=== PATIENT | female | born 1970 | race Caucasian/White ===

== ENCOUNTER 2017-01-10 05:58 | Day surgery (SDC) | payer OTHER ==
[~2017-01-10] VITALS: Ht 154.9 cm; Wt 71.2 kg
[~2017-01-10 05:58] MED LIST: CYCLOBENZAPR5 MG PO; EC-NAPROSYN500 MG PO; FLEXERIL PO; LORTAB 10-325 M1 TAB PO; LORTAB 5-325 MG1 TAB PO; NEXIUM20 M1 PO; PERCOCET 5/325M1 TAB PO; PROBIOTI3 PO; PROTONIX40 M2 PO; WELLBUTRIN SR150 MG PO; XANAX0.25 MG PO; ZANTAC150 M1 PO; [UNRECOGNIZED DRUG - OTHER]
[2017-01-10 08:27] VITALS: BP 141/82
== END 2017-01-10 08:15 | disposition home or self-care (01) | DRG 552 ==
LOC: ORM 05:58
PROVIDERS: ATTEND Anesthesiology Pain Medicine
PROC: 3E0U33Z Introduction of Anti-inflammatory into Joints, Percutaneous Approach (ICD-10-PCS; principal; 2017-01-10)
PROC: 3E0U3BZ Introduction of Anesthetic Agent into Joints, Percutaneous Approach (ICD-10-PCS; 2017-01-10)
DX: M54.2 Cervicalgia (principal)

== ENCOUNTER 2017-01-24 05:56 | Day surgery (SDC) | payer OTHER ==
[~2017-01-24] VITALS: Ht 154.9 cm; Wt 68.9 kg
== END 2017-01-24 06:45 | disposition home or self-care (01) | DRG 552 ==
LOC: ORM 05:56
PROVIDERS: ATTEND Anesthesiology Pain Medicine
DX: M54.2 Cervicalgia (principal); Z53.8 Procedure and treatment not carried out for other reasons

== ENCOUNTER → 2017-03-21 | Day surgery (SDC) | payer OTHER ==
[~2017-03-21] VITALS: Ht 154.9 cm; Wt 70.3 kg
[~2017-03-21] MED LIST changes: +FIORICET PO
[2017-03-21 07:58] VITALS: BP 105/58
== END | disposition home or self-care (01) | DRG 552 ==
LOC: ORM 02-21 09:45
PROVIDERS: ATTEND Anesthesiology Pain Medicine
PROC: 3E0U33Z Introduction of Anti-inflammatory into Joints, Percutaneous Approach (ICD-10-PCS; principal; 2017-03-21)
PROC: 3E0U3BZ Introduction of Anesthetic Agent into Joints, Percutaneous Approach (ICD-10-PCS; 2017-03-21)
DX: M54.2 Cervicalgia (principal)

== ENCOUNTER 2017-03-23 20:31 | Emergency (ER) | payer OTHER ==
[~2017-03-23] VITALS: Ht 154.9 cm; Wt 70.0 kg
[~2017-03-23 20:31] MED LIST changes: -FIORICET PO
[2017-03-23 21:19] LABS: HEMOGLOBIN 13.4 g/dl (12.0-16.0); IMMATURE GRANULOCYTES 0.3 % (0.0-1.0); MEAN CELL VOLUME 94.3 fL CALC (80.0-100.0); MEAN CORPUSCULAR HGB 31.6 pG CALC (26.0-32.0); MEAN CORPUSCULAR HGB CONC 33.5 g/L CALC (32.0-36.0); NEUT# 10.38 thou/uL (2.00-7.15); RED BLOOD COUNT 4.24 mill/uL (4.20-5.60); RED CELL DISTRI WIDTH 13.2 % (11.5-15.5)
[2017-03-23 21:20] LABS: URINE BILIRUBIN - DIPSTICK NEGATIVE (NEGATIVE); URINE BLOOD DIPSTICK NEGATIVE (NEGATIVE); URINE CLARITY SLIGHT CLOUDY; URINE COLOR YELLOW; URINE GLUCOSE - DIPSTICK NEGATIVE (NEGATIVE); URINE KETONE NEGATIVE (NEGATIVE); URINE LEUK ESTERASE NEGATIVE (NEGATIVE); URINE NITRITE - DIPSTICK NEGATIVE (Negative); URINE PH 6.5 (4.5-8.0); URINE PROTEIN - DIPSTICK NEGATIVE (NEG-TRACE); URINE UROBILINOGEN - DIPSTICK 0.2 E.U./dL (0.2)
[2017-03-23 21:33] LABS: ALBUMIN 4.7 g/dL (3.2-5.0); ALKALINE PHOSPHATASE 48 u/l (38-126); ANION GAP 16 (6-22 (CALC)); BILIRUBIN, TOTAL 0.3 mg/dL (0.0-1.4); BUN 17 mg/dL (7-17); BUN/CREATININE RATIO 18 (12-20 (CALC)); CALCIUM 9.9 mg/dL (8.4-10.2); CARBON DIOXIDE 25 mmol/l (22-30); CHLORIDE 104 mmol/l (95-108); CREATININE 0.9 mg/dL (0.5-1.0); GFR > 60 ML/MIN (>=60 (CALC)); GFR FOR AFR.AMER. > 60 ML/MIN (>=60 (CALC)); GLUCOSE 115 mg/dL (65-105); SGOT/AST 18 u/l (14-36); SGPT/ALT 33 u/l (9-52); SODIUM 141 mmol/l (137-146); TOTAL PROTEIN 7.9 g/dL (6.3-8.2)
[2017-03-23 23:12] VITALS: BP 122/78
== END 2017-03-23 23:15 | disposition home or self-care (01) | DRG 103 ==
LOC: ED 20:31
PROVIDERS: Emergency Medicine
DX: R51 Headache (principal); G35 Multiple sclerosis; D72.829 Elevated white blood cell count, unspecified; R11.0 Nausea

== ENCOUNTER 2017-03-27 15:29 | Emergency (ER) | payer OTHER ==
[~2017-03-27] VITALS: Ht 154.9 cm; Wt 70.0 kg
[2017-03-27 16:25] LABS: URINE BILIRUBIN - DIPSTICK NEGATIVE (NEGATIVE); URINE BLOOD DIPSTICK NEGATIVE (NEGATIVE); URINE CLARITY CLEAR; URINE COLOR YELLOW; URINE GLUCOSE - DIPSTICK NEGATIVE (NEGATIVE); URINE KETONE NEGATIVE (NEGATIVE); URINE LEUK ESTERASE NEGATIVE (NEGATIVE); URINE NITRITE - DIPSTICK NEGATIVE (Negative); URINE PH 5.5 (4.5-8.0); URINE PROTEIN - DIPSTICK NEGATIVE (NEG-TRACE); URINE SPECIFIC GRAVITY >=1.030; URINE UROBILINOGEN - DIPSTICK 0.2 E.U./dL (0.2)
[2017-03-27] MEDS ORDERED: FIORICET PO (17:12)
[2017-03-27 17:18] VITALS: BP 107/67
== END 2017-03-27 17:25 | disposition home or self-care (01) | DRG 103 ==
LOC: ED 15:29
PROVIDERS: Emergency Medicine
DX: G43.909 Migraine, unspecified, not intractable, without status migrainosus (principal); G35 Multiple sclerosis; G89.29 Other chronic pain; M54.9 Dorsalgia, unspecified; M54.2 Cervicalgia

== ENCOUNTER 2017-09-06 08:17 | Emergency (ER) | payer OTHER ==
[~2017-09-06] VITALS: Ht 154.9 cm; Wt 70.0 kg
[~2017-09-06 08:17] MED LIST changes: +FIORICET PO
[2017-09-06 09:13] LABS: HEMATOCRIT 39.9 % (37.0-47.0); HEMOGLOBIN 13.2 g/dl (12.0-16.0); IMMATURE GRANULOCYTES 0.2 % (0.0-1.0); MEAN CELL VOLUME 94.3 fL CALC (80.0-100.0); MEAN CORPUSCULAR HGB 31.2 pG CALC (26.0-32.0); MEAN CORPUSCULAR HGB CONC 33.1 g/L CALC (32.0-36.0); NEUT# 3.81 thou/uL (2.00-7.15); RED BLOOD COUNT 4.23 mill/uL (4.20-5.60); RED CELL DISTRI WIDTH 13.7 % (11.5-15.5)
[2017-09-06 09:57] LABS: ALBUMIN 4.4 g/dL (3.2-5.0); ALKALINE PHOSPHATASE 43 u/l (38-126); ANION GAP 15 (6-22 (CALC)); BILIRUBIN, TOTAL 0.5 mg/dL (0.0-1.4); BUN 11 mg/dL (7-17); BUN/CREATININE RATIO 15 (12-20 (CALC)); CALCIUM 9.8 mg/dL (8.4-10.2); CARBON DIOXIDE 25 mmol/l (22-30); CHLORIDE 107 mmol/l (95-108); CREATININE 0.7 mg/dL (0.5-1.0); GFR > 60 ML/MIN (>=60 (CALC)); GFR FOR AFR.AMER. > 60 ML/MIN (>=60 (CALC)); GLUCOSE 93 mg/dL (65-105); POTASSIUM 4.3 mmol/l (3.5-5.1); SGOT/AST 20 u/l (14-36); SGPT/ALT 28 u/l (9-52); SODIUM 142 mmol/l (137-146); TOTAL PROTEIN 7.1 g/dL (6.3-8.2)
[2017-09-06 10:08] LABS: MYOGLOBIN 27 ng/mL (0 - 62)
[2017-09-06 10:49] LABS: URINE BILIRUBIN - DIPSTICK NEGATIVE (NEGATIVE); URINE BLOOD DIPSTICK NEGATIVE (NEGATIVE); URINE COLOR YELLOW; URINE GLUCOSE - DIPSTICK NEGATIVE (NEGATIVE); URINE KETONE NEGATIVE (NEGATIVE); URINE LEUK ESTERASE NEGATIVE (NEGATIVE); URINE NITRITE - DIPSTICK NEGATIVE (Negative); URINE PH 5.5 (4.5-8.0); URINE PROTEIN - DIPSTICK NEGATIVE (NEG-TRACE); URINE UROBILINOGEN - DIPSTICK 0.2 E.U./dL (0.2)
[2017-09-06 10:55] LABS: URINE CLARITY CLEAR
[2017-09-06 15:06] VITALS: BP 134/80
== END 2017-09-06 15:07 | disposition home or self-care (01) | DRG 103 ==
LOC: ED 08:17
PROVIDERS: Emergency Medicine
DX: R51 Headache (principal); G35 Multiple sclerosis; R20.0 Anesthesia of skin
CPT/HCPCS: A9579

== ENCOUNTER 2017-11-21 12:40 | Emergency (ER) | payer OTHER ==
[~2017-11-21] VITALS: Ht 154.9 cm; Wt 71.4 kg
[2017-11-21] MEDS ORDERED: XANAX1 MG PO (12:54)
[2017-11-21] MEDS ORDERED: PANTOPRAZOLE SO40 MG PO (12:55)
[2017-11-21 13:39] LABS: HEMATOCRIT 41.2 % (37.0-47.0); HEMOGLOBIN 13.7 g/dl (12.0-16.0); IMMATURE GRANULOCYTES 0.3 % (0.0-1.0); MEAN CELL VOLUME 95.8 fL CALC (80.0-100.0); MEAN CORPUSCULAR HGB 31.9 pG CALC (26.0-32.0); MEAN CORPUSCULAR HGB CONC 33.3 g/L CALC (32.0-36.0); NEUT# 6.16 thou/uL (2.00-7.15); RED BLOOD COUNT 4.3 mill/uL (4.20-5.60); RED CELL DISTRI WIDTH 13.5 % (11.5-15.5)
[2017-11-21 13:42] LABS: ALBUMIN 4.3 g/dL (3.2-5.0); ALKALINE PHOSPHATASE 55 u/l (38-126); ANION GAP 16 (6-22 (CALC)); BILIRUBIN, TOTAL 0.4 mg/dL (0.0-1.4); BUN 12 mg/dL (7-17); BUN/CREATININE RATIO 15 (12-20 (CALC)); CARBON DIOXIDE 21 mmol/l (22-30); CHLORIDE 107 mmol/l (95-108); CREATININE 0.8 mg/dL (0.5-1.0); GFR > 60 ML/MIN (>=60 (CALC)); GFR FOR AFR.AMER. > 60 ML/MIN (>=60 (CALC)); LIPASE 84 u/l (23-300); POTASSIUM 4.2 mmol/l (3.5-5.1); SGPT/ALT 25 u/l (9-52); SODIUM 140 mmol/l (137-146); TOTAL PROTEIN 7.5 g/dL (6.3-8.2)
[2017-11-21 13:53] LABS: SGOT/AST 36 u/l (14-36)
[2017-11-21] MEDS ORDERED: CARAFATE1 GM PO (14:17)
[2017-11-21 14:31] VITALS: BP 119/73
== END 2017-11-21 14:39 | disposition home or self-care (01) | DRG 392 ==
LOC: ED 12:40
PROVIDERS: Emergency Medicine
DX: R10.13 Epigastric pain (principal); G35 Multiple sclerosis; F17.210 Nicotine dependence, cigarettes, uncomplicated; R05 Cough

== ENCOUNTER 2018-05-05 13:55 | Emergency (ER) | payer OTHER ==
[~2018-05-05] VITALS: Ht 154.9 cm; Wt 74.0 kg
[~2018-05-05 13:55] MED LIST changes: +CARAFATE1 GM PO; +PANTOPRAZOLE SO40 MG PO; +XANAX1 MG PO
[2018-05-05 14:36] VITALS: BP 143/101
== END 2018-05-05 14:36 | disposition left against medical advice (07) ==
LOC: ED 13:55 → LWOBS 14:19
DX: Z91.19 Patient's noncompliance with other medical treatment and regimen (principal)

== ENCOUNTER 2018-06-19 06:37 | Emergency (ER) | payer OTHER ==
[~2018-06-19] VITALS: Ht 154.9 cm; Wt 70.0 kg
[2018-06-19 07:22] LABS: HEMOGLOBIN 12.9 g/dl (12.0-16.0); IMMATURE GRANULOCYTES 0.3 % (0.0-5.0); MEAN CELL VOLUME 94.2 fL CALC (80.0-100.0); MEAN CORPUSCULAR HGB 31.2 pG CALC (26.0-32.0); MEAN CORPUSCULAR HGB CONC 33.1 g/L CALC (32.0-36.0); NEUT# 4.96 thou/uL (2.00-7.15); RED BLOOD COUNT 4.14 mill/uL (4.20-5.60); RED CELL DISTRI WIDTH 13.3 % (11.5-15.5)
[2018-06-19 07:23] LABS: URINE BILIRUBIN - DIPSTICK NEGATIVE (NEGATIVE); URINE BLOOD DIPSTICK TRACE-INTACT (NEGATIVE); URINE CLARITY CLEAR; URINE COLOR YELLOW; URINE GLUCOSE - DIPSTICK NEGATIVE (NEGATIVE); URINE KETONE NEGATIVE (NEGATIVE); URINE LEUK ESTERASE NEGATIVE (NEGATIVE); URINE NITRITE - DIPSTICK NEGATIVE (Negative); URINE PH 6.5 (4.5-8.0); URINE PROTEIN - DIPSTICK NEGATIVE (NEG-TRACE); URINE SPECIFIC GRAVITY <=1.005; URINE UROBILINOGEN - DIPSTICK 0.2 E.U./dL (0.2)
[2018-06-19 07:32] LABS: ALBUMIN 4.3 g/dL (3.2-5.0); ALKALINE PHOSPHATASE 44 u/l (38-126); ANION GAP 14 (6-22 (CALC)); BILIRUBIN, TOTAL 0.4 mg/dL (0.0-1.4); BUN 10 mg/dL (7-17); BUN/CREATININE RATIO 16 (12-20 (CALC)); CARBON DIOXIDE 24 mmol/l (22-30); CHLORIDE 108 mmol/l (95-108); CREATININE 0.6 mg/dL (0.5-1.0); GFR > 60 ML/MIN (>=60 (CALC)); GFR FOR AFR.AMER. > 60 ML/MIN (>=60 (CALC)); LIPASE 113 u/l (23-300); POTASSIUM 4.5 mmol/l (3.5-5.1); SGOT/AST 15 u/l (14-36); SODIUM 142 mmol/l (137-146); TOTAL PROTEIN 7.3 g/dL (6.3-8.2)
[2018-06-19] MEDS ORDERED: CYMBALTA20 MG PO (07:35)
[2018-06-19 09:28] VITALS: BP 115/75
== END 2018-06-19 09:39 | disposition home or self-care (01) ==
LOC: ED 06:37
PROVIDERS: Emergency Medicine
DX: R07.89 Other chest pain (principal); K21.9 Gastro-esophageal reflux disease without esophagitis; K44.9 Diaphragmatic hernia without obstruction or gangrene; F17.210 Nicotine dependence, cigarettes, uncomplicated; R53.1 Weakness; R42 Dizziness and giddiness; R10.13 Epigastric pain

== ENCOUNTER 2020-11-02 07:58 | Emergency (ER) | payer OTHER ==
[~2020-11-02] VITALS: Ht 154.9 cm; Wt 72.0 kg
[~2020-11-02 07:58] MED LIST changes: +CYMBALTA20 MG PO
[2020-11-02] MEDS ORDERED: IBUPROFEN600 MG PO (10:02)
[2020-11-02 10:12] VITALS: BP 107/70
== END 2020-11-02 10:13 | disposition home or self-care (01) ==
LOC: ED 07:58
DX: M25.512 Pain in left shoulder (principal); G35 Multiple sclerosis; F17.200 Nicotine dependence, unspecified, uncomplicated

== ENCOUNTER 2022-06-22 08:20 | Day surgery (SDC) | payer OTHER ==
[~2022-06-22] VITALS: Ht 154.9 cm; Wt 77.1 kg
[~2022-06-22 08:20] MED LIST changes: +24HR ALLERGY R180 MG PO; +FISH OIL1000 MG PO; +FLONASE AL50 MCG/ACT NAB; +IBUPROFEN600 MG PO; +LIPITOR20 M1 PO; +MEDICAL MARIJUANA IN; +MONTELUKAST SOD10 MG PO; +SUCRALFATE1 GM PO; +WELLBUTRIN100 M2 PO
[2022-06-22] MEDS ORDERED: PERCOCET 5/321 COMBO PO (11:25)
[2022-06-22 12:54] VITALS: BP 130/83
== END 2022-06-22 12:17 | disposition home or self-care (01) ==
LOC: ENDO 08:20
PROVIDERS: ATTEND Surgery
DX: K21.9 Gastro-esophageal reflux disease without esophagitis (principal); K64.2 Third degree hemorrhoids; Z12.11 Encounter for screening for malignant neoplasm of colon; D12.8 Benign neoplasm of rectum; F17.200 Nicotine dependence, unspecified, uncomplicated; Z86.010 Personal history of colon polyps
CPT/HCPCS: C9290; J0131

== ENCOUNTER 2024-03-22 13:52 | Emergency (ER) | payer OTHER ==
[~2024-03-22] VITALS: Ht 154.9 cm; Wt 61.2 kg
[2024-03-22] VITALS (10 sets, daily range): BP systolic 96–145; BP diastolic 61–100
[~2024-03-22 13:52] MED LIST changes: +PERCOCET 5/321 COMBO PO
[2024-03-22] MEDS ORDERED: SODIUM CHLORIDE 0.9% 1,000 ML IV ONE (14:10)
[2024-03-22] MEDS ORDERED: METHYLPREDNISOLONE SODIUM SUCC IV ONE (14:15)
[2024-03-22 14:25] LABS: BASO% 0.3 % (0-3); EOS% 1.4 % (0-8); HEMATOCRIT 41.5 % (37.0-47.0); HEMOGLOBIN 13.7 g/dl (12.0-16.0); IMMATURE GRANULOCYTES 0.1 % (0.0-5.0); LYMPH% 37.6 % (15-41); MEAN CORPUSCULAR HGB 31.4 pG CALC (26.0-32.0); MONO% 4.3 % (2-13); NEUT# 4.85 thou/uL (2.00-7.15); NEUT% 56.3 % (42-76); RED BLOOD COUNT 4.37 mill/uL (4.20-5.60); RED CELL DISTRI WIDTH 13.2 % (11.5-15.5)
[2024-03-22 14:55] LABS: CREATININE 0.8 mg/dL (0.5-1.0)
[2024-03-22 14:59] LABS: POTASSIUM 3.4 mmol/l (3.5-5.1)
[2024-03-22] MEDS ORDERED: STERILE WATER IV ONE (15:15)
[2024-03-22] MEDS ORDERED: STERILE WATER 1 VIAL IV ONE (15:31)
== END 2024-03-22 16:11 | disposition home or self-care (01) ==
LOC: ED 13:52
PROVIDERS: Family Medicine
DX: G35 Multiple sclerosis (principal); F17.210 Nicotine dependence, cigarettes, uncomplicated